=== PATIENT | male | born 1955 | race Caucasian/White ===

== ENCOUNTER → 2017-09-11 | Outpatient (CLI) | payer MEDICARE, BC ==
--- NOTE | 2017-09-11 23:52 | MR ---
EXAMINATION TYPE: MR lumbar spine wo con DATE OF EXAM: 09/11/2017 COMPARISON: 04/16/2013 HISTORY: Severe low back pain x15 years TECHNIQUE: Multiplanar, multisequence images of the lumbar spine were acquired. The lumbar vertebra have normal alignment. Disc spaces are fairly normal for age. There is 50% anteri or wedging of L1 vertebral body. There is slight increased signal on T2 images in the vertebral body consistent with edema. Lumbar nerve roots appear normal. Neural foramina are fairly well-maintained. There is a small posterior disc bulge at L5-S1. There are small posterior disc bulge at L1-2. There i s no paraspinal mass. IMPRESSION: There is compression fracture of L1 vertebral body that appears subacute with increased signal on T2 images. This fracture is new compared to 04/16/2013. Small posterior disc bulging at L1-2 and L5-S1. N o spinal stenosis.
== END | disposition home or self-care (01) ==
LOC: RADMRIMAIN 15:49
PROVIDERS: ATTEND Family Medicine
DX: M51.27 Other intervertebral disc displacement, lumbosacral region (principal); M48.56XA Collapsed vertebra, not elsewhere classified, lumbar region, initial encounter for fracture
CPT/HCPCS: 72148

== ENCOUNTER → 2020-06-03 | Outpatient (CLI) | payer MEDICARE, BC ==
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
== END | disposition home or self-care (01) ==
LOC: RADMRIMAIN 10:12
PROVIDERS: ATTEND Physician Assistant
DX: S32.019A Unspecified fracture of first lumbar vertebra, initial encounter for closed fracture (principal); M47.816 Spondylosis without myelopathy or radiculopathy, lumbar region; M47.817 Spondylosis without myelopathy or radiculopathy, lumbosacral region
CPT/HCPCS: 72148

== ENCOUNTER → 2021-10-18 | Outpatient (CLI) | payer MEDICARE, BC ==
--- NOTE | 2021-10-18 14:46 | US ---
EXAMINATION TYPE: US scrotum with doppler. DATE OF EXAM: 10/18/2021 COMPARISON: NONE CLINICAL HISTORY: 66-year-old male R36.1 Hematospermia. No pain or lump TECHNIQUE: Grayscale and color Doppler Duplex imaging performed of the scrotum. FINDINGS: EXAM MEASUREMENTS: TESTICLES: Right Testicle: 4.1x2.4x1.9 cm Left Testicle: 4.0x2.4x1.9 cm EPIDIDYMIS HEAD: Right Epididymis: 0.9 cm Left Epididymis: 0.9 cm. Calcifications seen in the tail of the left epididymis, probable phlebolith s. Head and body appear within normal limits Doppler performed to assess for testicular vascularity; good bilateral color flow and waveforms are s een. There is no evidence of testicular torsion. Presence of hydroceles: Trace on both sides Presence of varicoceles: No IMPRESSION: 1. No sonographic evidence for testicular torsion or epididymoorchitis. 2. Trace bilateral hydroceles. 3. Some incidental calcifications in the tail of the left epididymis, probable small phleboliths.
== END | disposition home or self-care (01) ==
LOC: RADUSWWP 14:13
PROVIDERS: ATTEND Family Medicine
DX: N43.3 Hydrocele, unspecified (principal)
CPT/HCPCS: 76870; 93975